=== PATIENT | male | born 1990 | race Caucasian/White ===

== ENCOUNTER 2018-07-27 08:16 | Emergency (ER) | payer OTHER ==
[2018-07-27 08:25] VITALS: BP 133/75
--- NOTE | 2018-07-27 08:35 | ED Physician Documentation ---
PD HPI HEENT - Stated complaint Stated Complaint: SORE THOART/SOA - Chief complaint Chief Complaint: Heent - History obtained from History obtained from: Patient - History of Present Illness Timing - onset: How many days ago (5) Timing - duration: Days (5) Timing - details: Gradual onset, Still present Location: Throat Improves: Medication Worsens: Swalllowing Associated symptoms: Fever, Congestion, Headache Similar symptoms before: Has not had sx before Recently seen: Clinic - Additional information Additional information: 28-year-old [employer] male with a sore throat for 5 days has had persistence of his sore throat. He went into the clinic at [facility] on Wednesday and was diagnosed with viral URI and today he went back in to see the doctor and was maria d d that his strep was positive. He has come down to the emergency department for treatment. Review of Systems Constitutional: reports: Fever, Chills Eyes: denies: Decreased vision Ears: denies: Ear pain Nose: reports: Rhinorrhea / runny nose, Congestion Throat: reports: Sore throat Cardiac: denies: Chest pain / pressure, Palpitations Respiratory: denies: Dyspnea, Cough GI: denies: Abdominal Pain, Nausea, Vomiting : denies: Dysuria, Frequency Skin: denies: Rash Musculoskeletal: denies: Neck pain, Back pain, Extremity pain Neurologic: denies: Generalized weakness, Focal weakness, Numbness PD PAST MEDICAL HISTORY - Present Medications Home Medications: Ambulatory Orders Medication Instructions Recorded Confirmed Amoxicillin 875 mg PO BID #20 tablet 07/27/18 - Allergies Allergies/Adverse Reactions: Allergies Allergy/AdvReac Type Severity Reaction Status Date / Time No Known Drug Allergies Allergy Verified 07/27/18 08:28 PD ED PE NORMAL - Vitals Vital signs reviewed: Yes (normal ) - General General: Alert and oriented X 3, No acute distress, Well developed/nourished - HEENT HEENT: Atraumatic, PERRL, EOMI, Ears normal, Other (erythema and swelling in patches to the posterior pharnyx ) - Neck Neck: Supple, no meningeal sign, No bony TTP - Cardiac Cardiac: RRR, No murmur - Respiratory Respiratory: No respiratory distress, Clear bilaterally - Abdomen Abdomen: Soft, Non tender - Back Back: No CVA TTP, No spinal TTP - Derm Derm: Normal color, Warm and dry, No rash - Extremities Extremities: No deformity, No edema - Neuro Neuro: Alert and oriented X 3, 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 He is administered dexamethasone 10 mg orally we will give him a work note for 2 days so that he is on his third day of antibiotic when he goes back to work and prescribed some amoxicillin. Departure - Departure Disposition: 01 Home, Self Care Clinical Impression: Strep pharyngitis Condition: Stable Instructions: ED Strep Pharyngitis Conf Follow-Up: Leslie Lerner MD [Primary Care Provider] - Prescriptions: Amoxicillin 875 mg PO BID #20 tablet Forms: Activity restrictions
[2018-07-27] MEDS: DEXAMETHASONE 10 MG/ML VIAL PO STA (08:48)
[2018-07-27] MEDS ORDERED: CHERRY SYRUP 10 ML UDC PO ONE (08:49)
== END 2018-07-27 08:50 | disposition home or self-care (01) ==
LOC: ED 08:16
DX: J02.0 Streptococcal pharyngitis (principal)
CPT/HCPCS: 99283